=== PATIENT | male | born 1950 | race Two or more races ===

== ENCOUNTER 2020-06-24 05:55 | Day surgery (SDC) | payer OTHER ==
[~2020-06-24 05:55] MED LIST: BREO ELLIPTA 21 EACH IH; FENOF PO; FENOFI PO; FORTAMET500 MG PO; GABAPEN PO; NORVASC5 MG PO; TAMS0.4C PO; ZESTRIL20 MG PO; ZOCOR40 MG PO
== END 2020-06-24 15:40 | disposition home or self-care (01) ==
LOC: CIR.AMB 05:55
PROVIDERS: ATTEND Specialist
DX: K42.9 Umbilical hernia without obstruction or gangrene (principal); Z20.828 Contact with and (suspected) exposure to other viral communicable diseases